=== PATIENT | male | born 1940 | race Caucasian/White ===

== ENCOUNTER 2018-05-05 12:22 | Emergency (ER) | payer MEDICARE, BC ==
--- NOTE | 2018-05-05 13:13 | EDM.PDOC ---
ED HPI GENERAL MEDICAL PROBLEM - General Chief Complaint: General Stated Complaint: ICHY ALL OVER AND DIARRHEA FOR 30 DAYS Time Seen by Provider: 05/05/18 12:50 Source of Information: Reports: Patient History Limitations: Reports: No Limitations - History of Present Illness INITIAL COMMENTS - FREE TEXT/NARRATIVE: 77-year-old male with chief complaints of diffuse itching and watery diarrhea for the past "30 days". He went into the clinic 4 days ago to discuss these problems and was recommended some [id number] medications. He had a bad night last night, was unable to sleep because of the itching so his told him to come to the emergency room today. He has no pain other than some intermittent mild right chest pain which has been ongoing for several weeks. Denies any shortness of breath, fevers or chills. He had an annual exam at the [place] last fall and was told he has high triglycerides otherwise things looked good. He has not been traveling. Associated Symptoms: Reports: Cough (Review of his clinic records shows that he was complaining of a cough 4 days ago), Other (Diarrhea). Denies: Fever/Chills , Headaches, Shortness of Breath - Related Data Allergies Allergy/AdvReac Type Severity Reaction Status Date / Time venom-honey bee Allergy Severe Respiratory Verified 02/11/14 08:42 [bee venom (honey bee)] Depression Home Meds: Home Meds Losartan [Cozaar] 50 mg PO DAILY 10/29/13 [History] Simvastatin [Zocor] 5 mg PO BEDTIME 10/29/13 [History] Past Medical History Cardiovascular History: Reports: High Cholesterol, Hypertension Musculoskeletal History: Reports: Back Pain, Chronic Oncologic (Cancer) History: Reports: Bladder - Past Surgical History GI Surgical History: Reports: Cholecystectomy Other Musculoskeletal Surgeries/Procedures:: SPinal cord Stimulator implant L5- 4 Fusion Social & Family History - Tobacco Use Smoking Status *Q: Never Smoker - Caffeine Use Caffeine Use: Reports: Coffee - Recreational Drug Use Recreational Drug Use: No ED ROS GENERAL - Review of Systems Review Of Systems: See Below Constitutional: Denies: Fever, Chills HEENT: Reports: Other (Very hard of hearing) Respiratory: Reports: Cough (Recent cough seems to have improved). Denies: Shortness of Breath Cardiovascular: Reports: Other (Right anterior intermittent chest discomfort) GI/Abdominal: Reports: Diarrhea. Denies: Abdominal Pain, Nausea Skin: Reports: Pruritis (Diffuse), Rash (Very slight erythema, possibly from scratching) Neurological: Reports: Other (Hard of hearing). Denies: Confusion, Headache ED EXAM, GENERAL - Physical Exam Exam: See Below Exam Limited By: No Limitations General Appearance: Alert, No Apparent Distress Eye Exam: Bilateral Eye: EOMI Head: Atraumatic, Other (Scalp appears normal despite it "itching".) Respiratory/Chest: No Respiratory Distress, Lungs Clear Cardiovascular: Regular Rate, Rhythm GI/Abdominal: Non-Tender Extremities: No: Pedal Edema Neurological: Alert, Oriented Psychiatric: Normal Affect, Normal Mood Skin Exam: Other (There is a very faint hint of a macular erythematous rash on the abdomen and scattered spots on the back, the scalp is clear and extremities look clear) Course - Vital Signs Last Recorded V/S: Last Vital Signs Temp 95.5 F 05/05/18 12:38 Pulse 82 05/05/18 12:38 Resp 16 05/05/18 12:38 BP 152/86 H 05/05/18 12:38 Pulse Ox 96 05/05/18 12:38 - Orders/Labs/Meds Labs: Laboratory Tests 05/05/18 05/05/18 Range/Units 13:16 13:16 WBC 9.4 (4.5-11.0) K/uL RBC 4.67 (4.30-5.90) M/uL Hgb 15.4 H (12.0-15.0) g/dL Hct 45.0 (40.0-54.0) % MCV 96 (80-98) fL MCH 33 H (27-31) pg MCHC 34 (32-36) % Plt Count 333 (150-400) K/uL Neut % (Auto) 64 (36-66) % Lymph % (Auto) 24 (24-44) % [place] % (Auto) 8 H (2-6) % Eos % (Auto) 3 (2-4) % Baso % (Auto) 1 (0-1) % Sodium 139 L (140-148) mmol/L Potassium 4.0 (3.6-5.2) mmol/L Chloride 105 (100-108) mmol/L Carbon Dioxide 23 (21-32) mmol/L Anion Gap 15.0 H (5.0-14.0) mmol/L BUN 14 (7-18) mg/dL Creatinine 1.0 (0.8-1.3) mg/dL Est Cr Clr Drug Dosing 55.83 mL/min Estimated GFR (MDRD) > 60 (>60) Glucose 106 (74-106) mg/dL Calcium 8.9 (8.5-10.1) mg/dL Total Bilirubin 0.6 (0.2-1.0) mg/dL AST 22 (15-37) U/L ALT 44 (12-78) U/L Alkaline Phosphatase 85 (46-116) U/L Total Protein 6.9 (6.4-8.2) g/dL Albumin 3.6 (3.4-5.0) g/dL Globulin 3.3 (2.3-3.5) g/dL Albumin/Globulin Ratio 1.1 L (1.2-2.2) TSH, Ultra Sensitive 1.716 (0.358-3.740) uIU/mL Meds: Medications Discontinued Medications Generic Name Dose Route Start Last Admin Trade Name Mirza PRN Reason Stop Dose Admin Methylprednisolone Sodium Succinate 125 mg 05/05/18 14:03 05/05/18 14:11 Solu-Medrol IM 05/05/18 14:04 125 mg ONETIME ONE Administration - Re-Assessments/Exams Free Text/Narrative Re-Assessment/Exam: 05/05/18 13:12 Reviewed his clinic visit from 4 days ago, the itching wasn't mentioned. His chief complaint at that time was cough and diarrhea for 4 days. Today we'll check a CBC, CMP and TSH and catch a stool sample if he has any diarrhea while here in the emergency room. 05/05/18 14:03 Patient was unable to give us a stool sample during his time in the emergency room. He did not want to wait any longer. His labs returned excellent, CBC CMP and TSH were normal. He'll be given 125 mg of IM Solu-Medrol, and I'm going to recommend Benadryl 25-50 mg 2-3 times daily, especially at bedtime along with some topical hydrocortisone. He needs to recheck at the clinic to provide a diarrhea sample if the diarrhea is persisting. He also may need a skin biopsy if the itching continues. Departure - Departure Time of Disposition: 14:22 Disposition: Home, Self-Care 01 Condition: Good Clinical Impression: Generalized pruritus Diarrhea Qualifiers: Diarrhea type: unspecified type Qualified Code(s): R19.7 - Diarrhea, unspecified - Discharge Information Instructions: Pruritus Referrals: Rupesh Christian MD [Primary Care Provider] - Forms: ED Department Discharge Care Plan Goals: Try Benadryl 25-50 mg every 6 hours, especially before sleeping. Topical hydrocortisone 1% which can be bought [id number] is a good cream to use along with the Benadryl. If diarrhea persists, take a stool sample to the clinic for tests or just recheck with Dr. Christian.
[2018-05-05] MEDS ORDERED: methylPREDNISolone Sodium Succinate 125 MG/2 ML SDV IM ONE (14:03)
== END 2018-05-05 14:22 | disposition home or self-care (01) ==
LOC: JP.ED 12:22
DX: L29.9 Pruritus, unspecified (principal); R19.7 Diarrhea, unspecified; I10 Essential (primary) hypertension; E78.00 Pure hypercholesterolemia, unspecified; Z91.030 Bee allergy status; Z79.899 Other long term (current) drug therapy
CPT/HCPCS: 36415; 80053; 84443; 85025; 96372; 99284; J2930

== ENCOUNTER 2018-09-21 17:02 | Emergency (ER) | payer MEDICARE, BC ==
[2018-09-21] MEDS ORDERED: Sodium Chloride 0.9% 10 ML Syringe FLUSH PRN (17:06)
[2018-09-21] MEDS ORDERED: Sodium Chloride 0.9% 1,000 ML IV SCH ×2 (17:15→18:30)
--- NOTE | 2018-09-21 17:40 | CRLCT ---
INDICATION: Confusion. COMPARISON: None. TECHNIQUE: Axial CT of the head without contrast. FINDINGS: Mild generalized volume loss. Patchy low-attenuation change within the white matter consistent with chronic small vessel ischemic changes. No acute intracranial hemorrhage, acute infarct, mass effect, or fracture. No midline shift. No abnormal ventricular dilatation. Normal calvarium and skull base. Visualized paranasal sinuses and mastoid air cells are clear. Focal soft tissue swelling and hematoma about the left frontal calvarium. No underlying fracture. IMPRESSION: 1. Focal soft tissue swelling and hematoma about the left frontal calvarium. No underlying fracture. 2. No acute intracranial abnormality. 3. Mild generalized volume loss. Dictated by Rakesh Young MD @ 09/21/2018 5:38:14 PM Please note that all CT scans at this facility use dose modulation, iterative reconstruction, and/or weight-based dosing when appropriate to reduce radiation dose to as low as reasonably achievable. Dictated by: Rakesh Young MD @ 09/21/2018 17:38:22 (Electronically Signed)
--- NOTE | 2018-09-21 17:51 | EDM.PDOC ---
ED HPI GENERAL MEDICAL PROBLEM - General Chief Complaint: Trauma Stated Complaint: FALL HURT HEAD Time Seen by Provider: 09/21/18 17:20 Source of Information: Reports: EMS History Limitations: Reports: Altered Mental Status, Intoxication, Uncooperative - History of Present Illness INITIAL COMMENTS - FREE TEXT/NARRATIVE: 78 year-old male presents via EMS after falling at a local grocery store. Patient fell outside got up immediately and was encouraged by passersby to go into the store and EMS was contacted. At time of assessment patient was confused answers yes or no questions appropriately but unable to give details. Patient has an obvious abrasion of his right forehead with a subconjunctival hematoma and periorbital swelling. Patient was alone at the grocery store therefore no witnesses are available at time of assessment. Patient does not know what happened before he fell and does not offer any useful complaints or information at time of evaluation. EMS noted the systolic blood pressure at 80 and blood sugar in the 90s. After initial assessment was contacted who presents to the ER with her son for evaluation. states he has had increased confusion and increased itching over the last 6-12 months. He's been doctoring at the [facility] but no significant abnormalities or concerns have been noted. Patient watches television and due to side effects with the commercials he has not been taking his calls last oral her blood pressure medications as prescribed. Patient is a very poor historian and noncompliant with treatment. is concerned regarding his alcohol use he does have a bottle in the car he tends to drive around and drink during the day. Patient was last known well at approximately noon today when he left his home. Patient has significant risk factors including elevated cholesterol, obesity, alcohol use along with elevated blood pressure therefore cardiac versus stroke causing syncope or in the differential. 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 - Related Data Allergies Allergy/AdvReac Type Severity Reaction Status Date / Time venom-honey bee Allergy Severe Respiratory Verified 02/11/14 08:42 [bee venom (honey bee)] Depression Home Meds: Home Meds Losartan [Cozaar] 50 mg PO DAILY 10/29/13 [History] Simvastatin [Zocor] 5 mg PO BEDTIME 10/29/13 [History] Past Medical History HEENT History: Reports: Impaired Vision Cardiovascular History: Reports: High Cholesterol, Hypertension Musculoskeletal History: Reports: Back Pain, Chronic Oncologic (Cancer) History: Reports: Bladder - Infectious Disease History Infectious Disease History: Reports: Chicken Pox, Measles, Mumps - Past Surgical History GI Surgical History: Reports: Cholecystectomy Other Musculoskeletal Surgeries/Procedures:: SPinal cord Stimulator implant L5- 4 Fusion Social & Family History - Tobacco Use Smoking Status *Q: Unknown Ever Smoked - Caffeine Use Caffeine Use: Reports: Coffee Review of Systems - Review of Systems Review Of Systems: Unable To Obtain (Decreased level of consciousness, confusion , cantankerous in declines answering questions.) ED EXAM, GENERAL - Physical Exam Exam: See Below Exam Limited By: Uncooperative (decreased LOC) General Appearance: Anxious, Mild Distress, Other (decreased LOC delayed responses noted ) Eye Exam: Left Eye: Bleeding (periorbital contusion/abrasion ), Bilateral Eye: EOMI, PERRL (sluggish ) Ears: Normal External Exam, Normal Canal, Hearing Grossly Normal, Normal TMs Ear Exam: Bilateral Ear: Auricle Normal, Canal Normal (cerumen noted), TM normal (difficulty to visualize ) Nose: Normal Inspection, Normal Mucosa, No Blood Throat/Mouth: Normal Inspection, Normal Lips, Normal Gums, Normal Oropharynx, Normal Voice, No Airway Compromise. No: Normal Teeth (poor oral health) Head: Other (left frontal contusion/abrasion noted ) Neck: Normal Inspection, Supple, Non-Tender, Full Range of Motion Respiratory/Chest: No Respiratory Distress, Lungs Clear, Normal Breath Sounds, No Accessory Muscle Use, Chest Non-Tender (Male) Exam: Deferred Rectal (Males) Exam: Deferred Neurological: CN II-XII Intact, Slow to Respond, Memory Loss Recent Events, Abnormal Gait Skin Exam: Warm Lymphatic: No Adenopathy ED TRAUMA PROCEDURES - Laceration/Wound Repair Left Lateral Other Lac/Wound Length In cm: 2.6 (left lateral eyebrow ) Appearance: Subcutaneous Skin Prep: Other (tap water) Closed With: Dermabond Left cheek facial Lac/Wound Length In cm: 3.5 (and 4.0) Appearance: Superficial, Clean Skin Prep: Other (Tap Water) Closed With: Dermabond EKG INTERPRETATION EKG Date: 09/21/18 Time: 17:06 Rhythm: NSR Rate (Beats/Min): 83 P-Wave: Variable QRS: RBBB ST-T: Depressed (depressed t waves) QT: Prolonged Comparison: Change From Previous EKG ([facility] EKG Dated October 2017, flattening T waves in pre cordial leads with flipped t wave in V1&V3 with worsening RBBB) Course - Vital Signs Last Recorded V/S: Last Vital Signs Temp 36.2 C 09/21/18 17:06 Pulse 79 09/21/18 17:06 Resp 13 09/21/18 17:06 BP 104/63 09/21/18 17:06 Pulse Ox 95 09/21/18 17:06 - Orders/Labs/Meds Orders: Active Orders 24 hr Category Date Time Status Cardiac Monitoring [RC] .As Directed Care 09/21/18 17:12 Active EKG Documentation Completion [RC] ASDIRECTED Care 09/21/18 17:06 Active Peripheral IV Care [RC] . DIRECTED Care 09/21/18 17:06 Active CULTURE BLOOD [BC] Urgent Lab 09/21/18 17:13 Received CULTURE BLOOD [BC] Urgent Lab 09/21/18 17:13 Received Sodium Chloride 0.9% [Normal Saline] 1,000 ml Med 09/21/18 17:15 Active IV ASDIRECTED Sodium Chloride 0.9% [Normal Saline] 1,000 ml Med 09/21/18 18:30 Active IV ASDIRECTED Sodium Chloride 0.9% [Saline Flush] Med 09/21/18 17:06 Active 10 ml FLUSH ASDIRECTED PRN Blood Culture x2 Reflex Set [OM.PC] Urgent Oth 09/21/18 17:06 Ordered Peripheral IV Insertion Adult [OM.PC] Urgent Oth 09/21/18 17:06 Ordered EKG 12 Lead [EK] Routine Ther 09/21/18 17:06 Ordered Medication Orders Sodium Chloride (Normal Saline) 1,000 mls @ 500 mls/hr IV ASDIRECTED SONI Last Admin: 09/21/18 17:30 Dose: 500 mls/hr Sodium Chloride (Normal Saline) 1,000 mls @ 500 mls/hr IV ASDIRECTED SONI Last Admin: 09/21/18 19:35 Dose: 500 mls/hr Sodium Chloride (Saline Flush) 10 ml FLUSH ASDIRECTED PRN PRN Reason: Keep Vein Open Labs: Laboratory Tests 09/21/18 09/21/18 09/21/18 Range/Units 17:13 17:13 17:13 WBC 9.9 (4.5-11.0) K/uL RBC 3.99 L (4.30-5.90) M/uL Hgb 13.1 D (12.0-15.0) g/dL Hct 39.5 L (40.0-54.0) % MCV 99 H (80-98) fL MCH 33 H (27-31) pg MCHC 33 (32-36) % Plt Count 272 (150-400) K/uL Neut % (Auto) 67 H (36-66) % Lymph % (Auto) 24 (24-44) % [place] % (Auto) 7 H (2-6) % Eos % (Auto) 1 L (2-4) % Baso % (Auto) 1 (0-1) % PT (9.5-12.0) sec INR (0.80-1.20) Sodium 139 L (140-148) mmol/L Potassium 3.5 L (3.6-5.2) mmol/L Chloride 107 (100-108) mmol/L Carbon Dioxide 18 L (21-32) mmol/L Anion Gap 17.5 H (5.0-14.0) mmol/L BUN 13 (7-18) mg/dL Creatinine 0.9 (0.8-1.3) mg/dL Est Cr Clr Drug Dosing 61.04 mL/min Estimated GFR (MDRD) > 60 (>60) Glucose 106 (74-106) mg/dL Lactic Acid 2.8 H (0.4-2.0) mmol/L Calcium 8.4 L (8.5-10.1) mg/dL Magnesium (1.8-2.4) mg/dL Total Bilirubin 0.4 (0.2-1.0) mg/dL AST 19 (15-37) U/L ALT 25 (12-78) U/L Alkaline Phosphatase 61 (46-116) U/L CK-MB (CK-2) (0-3.6) mg/mL Troponin I < 0.017 (0.000-0.056) ng/mL NT-Pro-B Natriuret Pep 52 (5-450) pg/mL Total Protein 5.8 L (6.4-8.2) g/dL Albumin 3.2 L (3.4-5.0) g/dL Globulin 2.6 (2.3-3.5) g/dL Albumin/Globulin Ratio 1.2 (1.2-2.2) Urine Color Urine Appearance Urine pH (4.5-8.0) Ur Specific [place] (1.008-1.030) Urine Protein (NEGATIVE) mg/dL Urine Glucose (UA) (NEGATIVE) mg/dL Urine Ketones (NEGATIVE) mg/dL Urine Occult Blood (NEGATIVE) Urine Nitrite (NEGAITVE) Urine Bilirubin (NEGATIVE) Urine Urobilinogen (NORMAL) mg/dL Ur Leukocyte Esterase (NEGATIVE) Urine RBC (0-5) Urine WBC (0-5) Ur Epithelial Cells Amorphous Sediment Urine Bacteria Urine Mucus Ethyl Alcohol mg/dL 09/21/18 09/21/18 09/21/18 Range/Units 17:13 17:13 17:30 WBC (4.5-11.0) K/uL RBC (4.30-5.90) M/uL Hgb (12.0-15.0) g/dL Hct (40.0-54.0) % MCV (80-98) fL MCH (27-31) pg MCHC (32-36) % Plt Count (150-400) K/uL Neut % (Auto) (36-66) % Lymph % (Auto) (24-44) % [place] % (Auto) (2-6) % Eos % (Auto) (2-4) % Baso % (Auto) (0-1) % PT 10.4 (9.5-12.0) sec INR 0.94 (0.80-1.20) Sodium (140-148) mmol/L Potassium (3.6-5.2) mmol/L Chloride (100-108) mmol/L Carbon Dioxide (21-32) mmol/L Anion Gap (5.0-14.0) mmol/L BUN (7-18) mg/dL Creatinine (0.8-1.3) mg/dL Est Cr Clr Drug Dosing mL/min Estimated GFR (MDRD) (>60) Glucose (74-106) mg/dL Lactic Acid (0.4-2.0) mmol/L Calcium (8.5-10.1) mg/dL Magnesium 2.0 (1.8-2.4) mg/dL Total Bilirubin (0.2-1.0) mg/dL AST (15-37) U/L ALT (12-78) U/L Alkaline Phosphatase (46-116) U/L CK-MB (CK-2) (0-3.6) mg/mL Troponin I (0.000-0.056) ng/mL NT-Pro-B Natriuret Pep (5-450) pg/mL Total Protein (6.4-8.2) g/dL Albumin (3.4-5.0) g/dL Globulin (2.3-3.5) g/dL Albumin/Globulin Ratio (1.2-2.2) Urine Color Urine Appearance Urine pH (4.5-8.0) Ur Specific [place] (1.008-1.030) Urine Protein (NEGATIVE) mg/dL Urine Glucose (UA) (NEGATIVE) mg/dL Urine Ketones (NEGATIVE) mg/dL Urine Occult Blood (NEGATIVE) Urine Nitrite (NEGAITVE) Urine Bilirubin (NEGATIVE) Urine Urobilinogen (NORMAL) mg/dL Ur Leukocyte Esterase (NEGATIVE) Urine RBC (0-5) Urine WBC (0-5) Ur Epithelial Cells Amorphous Sediment Urine Bacteria Urine Mucus Ethyl Alcohol 235 mg/dL 09/21/18 09/21/18 09/21/18 Range/Units 17:32 18:34 19:55 WBC (4.5-11.0) K/uL RBC (4.30-5.90) M/uL Hgb (12.0-15.0) g/dL Hct (40.0-54.0) % MCV (80-98) fL MCH (27-31) pg MCHC (32-36) % Plt Count (150-400) K/uL Neut % (Auto) (36-66) % Lymph % (Auto) (24-44) % [place] % (Auto) (2-6) % Eos % (Auto) (2-4) % Baso % (Auto) (0-1) % PT (9.5-12.0) sec INR (0.80-1.20) Sodium (140-148) mmol/L Potassium (3.6-5.2) mmol/L Chloride (100-108) mmol/L Carbon Dioxide (21-32) mmol/L Anion Gap (5.0-14.0) mmol/L BUN (7-18) mg/dL Creatinine (0.8-1.3) mg/dL Est Cr Clr Drug Dosing mL/min Estimated GFR (MDRD) (>60) Glucose (74-106) mg/dL Lactic Acid (0.4-2.0) mmol/L Calcium (8.5-10.1) mg/dL Magnesium (1.8-2.4) mg/dL Total Bilirubin (0.2-1.0) mg/dL AST (15-37) U/L ALT (12-78) U/L Alkaline Phosphatase (46-116) U/L CK-MB (CK-2) 0.8 (0-3.6) mg/mL Troponin I < 0.017 (0.000-0.056) ng/mL NT-Pro-B Natriuret Pep (5-450) pg/mL Total Protein (6.4-8.2) g/dL Albumin (3.4-5.0) g/dL Globulin (2.3-3.5) g/dL Albumin/Globulin Ratio (1.2-2.2) Urine Color Yellow Urine Appearance Slightly cloudy Urine pH 6.5 (4.5-8.0) Ur Specific [place] 1.010 (1.008-1.030) Urine Protein Negative (NEGATIVE) mg/dL Urine Glucose (UA) Normal (NEGATIVE) mg/dL Urine Ketones Negative (NEGATIVE) mg/dL Urine Occult Blood Trace (NEGATIVE) Urine Nitrite Negative (NEGAITVE) Urine Bilirubin Negative (NEGATIVE) Urine Urobilinogen Normal (NORMAL) mg/dL Ur Leukocyte Esterase Trace (NEGATIVE) Urine RBC 0-5 (0-5) Urine WBC 0-5 (0-5) Ur Epithelial Cells Rare Amorphous Sediment Not seen Urine Bacteria Few Urine Mucus Few Ethyl Alcohol mg/dL 09/21/18 Range/Units 19:55 WBC (4.5-11.0) K/uL RBC (4.30-5.90) M/uL Hgb (12.0-15.0) g/dL Hct (40.0-54.0) % MCV (80-98) fL MCH (27-31) pg MCHC (32-36) % Plt Count (150-400) K/uL Neut % (Auto) (36-66) % Lymph % (Auto) (24-44) % [place] % (Auto) (2-6) % Eos % (Auto) (2-4) % Baso % (Auto) (0-1) % PT (9.5-12.0) sec INR (0.80-1.20) Sodium (140-148) mmol/L Potassium (3.6-5.2) mmol/L Chloride (100-108) mmol/L Carbon Dioxide (21-32) mmol/L Anion Gap (5.0-14.0) mmol/L BUN (7-18) mg/dL Creatinine (0.8-1.3) mg/dL Est Cr Clr Drug Dosing mL/min Estimated GFR (MDRD) (>60) Glucose (74-106) mg/dL Lactic Acid 2.5 H (0.4-2.0) mmol/L Calcium (8.5-10.1) mg/dL Magnesium (1.8-2.4) mg/dL Total Bilirubin (0.2-1.0) mg/dL AST (15-37) U/L ALT (12-78) U/L Alkaline Phosphatase (46-116) U/L CK-MB (CK-2) (0-3.6) mg/mL Troponin I (0.000-0.056) ng/mL NT-Pro-B Natriuret Pep (5-450) pg/mL Total Protein (6.4-8.2) g/dL Albumin (3.4-5.0) g/dL Globulin (2.3-3.5) g/dL Albumin/Globulin Ratio (1.2-2.2) Urine Color Urine Appearance Urine pH (4.5-8.0) Ur Specific [place] (1.008-1.030) Urine Protein (NEGATIVE) mg/dL Urine Glucose (UA) (NEGATIVE) mg/dL Urine Ketones (NEGATIVE) mg/dL Urine Occult Blood (NEGATIVE) Urine Nitrite (NEGAITVE) Urine Bilirubin (NEGATIVE) Urine Urobilinogen (NORMAL) mg/dL Ur Leukocyte Esterase (NEGATIVE) Urine RBC (0-5) Urine WBC (0-5) Ur Epithelial Cells Amorphous Sediment Urine Bacteria Urine Mucus Ethyl Alcohol mg/dL Meds: Medications Generic Name Dose Route Start Last Admin Trade Name Freq PRN Reason Stop Dose Admin Sodium Chloride 1,000 mls @ 500 mls/hr 06/07/19 17:15 09/21/18 17:30 Normal Saline IV 500 mls/hr ASDIRECTED SONI Administration Sodium Chloride 1,000 mls @ 500 mls/hr 09/21/18 18:30 09/21/18 19:35 Normal Saline IV 500 mls/hr ASDIRECTED SONI Administration Sodium Chloride 10 ml 09/21/18 17:06 Saline Flush FLUSH ASDIRECTED PRN Keep Vein Open - Radiology Interpretation Free Text/Narrative:: CT Head w/o contrast: 1. Focal soft tissue swelling and hematoma about the left frontal calvarium. No underlying fracture. 2. No acute intracranial abnormality. 3. Mild generalized volume loss. CXR Portable: No significant acute cardiopulmonary findings noted. Radiology report reviewed. - Re-Assessments/Exams Free Text/Narrative Re-Assessment/Exam: 79-year-old male presents via EMS after falling in public coming out of a grocery store. He presented via EMS he had decreased level of consciousness, blood sugar was 90s, initial systolic blood pressure was 80s. Trauma systems completed and concern regarding myocardial infarction versus stroke causing fall. CT head showed no acute stroke or intracranial abnormalities. Heart Score: History of physical exam suspicious level: 1. EKG interpretation: Nonspecific repolarization disruption flattened T waves noted in precordial leads: 1. Age of patient greater than 65: 2. Risk factors greater than 3:2 points Troponin initial: Normal Repeat 2-3hr Troponin: Normal Laboratory studies were unrevealing. Patient has a significant high blood alcohol level is 0.24 which is 3 times the legal limit. Due to my concern regarding myocardial infarction along with elevated lactic acid likely secondary to dehydration repeat lactic acid and troponin is ordered. Left acid did improve with fluids given was given 1 L before redraw. Troponin remains stable. Family was updated regarding findings a does not have an acute stroke, acute intracranial bleed and no cardiac abnormality. Patient does not have a diagnosis the qualifies for admission or inpatient status. 09/21/18 18:45 Family is updated regarding laboratory studies. Patient needs to side when when and if he is ready for alcohol treatment. The patient was not comfortable with him going home. Patient is driving intoxicated and his cannot control his behavior and alcohol. He's been told numerous times that alcohol is his problem. He goes to the [facility] for routine care. Patient does not take medications on a regular basis. Patient initially is not agreeable with treatment. Family is not comfortable taking him home. After sitting the department for 2-3 hours and contacting various locations regarding detox and alcohol treatment. Patient is more amenable to treatment and was accepted at [facility]. Family is arranging transportation. 09/21/18 22:30 Departure - Departure Time of Disposition: 22:38 Disposition: DC/Tfer to Other 70 Clinical Impression: Alcohol abuse, Alcohol intoxication, Head injury due to trauma, Laceration - Discharge Information Instructions: Alcohol Use Disorder Forms: ED Department Discharge Additional Instructions: Discharge and Transfer to Detox Facility in [facility] per family. - Problem List & Annotations (1) Alcohol intoxication SNOMED Code(s): 36492858 Code(s): F10.929 - ALCOHOL USE, UNSPECIFIED WITH INTOXICATION, UNSPECIFIED Status: Acute Current Visit: Yes (2) Alcohol abuse SNOMED Code(s): 74934487 Code(s): F10.10 - ALCOHOL ABUSE, UNCOMPLICATED Status: Acute Current Visit: Yes (3) Syncope and collapse SNOMED Code(s): 543513702 Code(s): R55 - SYNCOPE AND COLLAPSE Status: Acute Current Visit: Yes (4) Head injury due to trauma SNOMED Code(s): 49953493 Code(s): S09.90XA - UNSPECIFIED INJURY OF HEAD, INITIAL ENCOUNTER Status: Acute Current Visit: Yes (5) Laceration SNOMED Code(s): 617722674 Code(s): WSO6451 - Status: Acute Current Visit: Yes - My Orders Last 24 Hours: My Active Orders 09/21/18 17:06 EKG Documentation Completion [RC] ASDIRECTED Peripheral IV Care [RC] . DIRECTED Sodium Chloride 0.9% [Saline Flush] 10 ml FLUSH ASDIRECTED PRN Blood Culture x2 Reflex Set [OM.PC] Urgent Peripheral IV Insertion Adult [OM.PC] Urgent EKG 12 Lead [EK] Routine 09/21/18 17:12 Cardiac Monitoring [RC] .As Directed 09/21/18 17:13 CULTURE BLOOD [BC] Urgent CULTURE BLOOD [BC] Urgent 09/21/18 17:15 Sodium Chloride 0.9% [Normal Saline] 1,000 ml IV ASDIRECTED 09/21/18 18:30 Sodium Chloride 0.9% [Normal Saline] 1,000 ml IV ASDIRECTED - Assessment/Plan Last 24 Hours: My Active Orders 09/21/18 17:06 EKG Documentation Completion [RC] ASDIRECTED Peripheral IV Care [RC] . DIRECTED Sodium Chloride 0.9% [Saline Flush] 10 ml FLUSH ASDIRECTED PRN Blood Culture x2 Reflex Set [OM.PC] Urgent Peripheral IV Insertion Adult [OM.PC] Urgent EKG 12 Lead [EK] Routine 09/21/18 17:12 Cardiac Monitoring [RC] .As Directed 09/21/18 17:13 CULTURE BLOOD [BC] Urgent CULTURE BLOOD [BC] Urgent 09/21/18 17:15 Sodium Chloride 0.9% [Normal Saline] 1,000 ml IV ASDIRECTED 09/21/18 18:30 Sodium Chloride 0.9% [Normal Saline] 1,000 ml IV ASDIRECTED
--- NOTE | 2018-09-21 18:06 | CRLCR ---
Indication: Syncopal episode Technique: Chest 1 view Comparison: None Findings: Cardiovascular and mediastinum: Heart size and vasculature are normal in caliber and appearance. Mediastinum is within normal limits. Lungs and pleural space: Lungs are clear. No sign of infiltrate or mass. No sign of pleural effusion. No pneumothorax. Bones and soft tissues: No acute findings. Neurostimulator device electrodes project over the lower thoracic spine. Impression: : No acute abnormality. Dictated by Elda Herrera MD @ Sep 21 2018 6:03PM Signed by Dr. Elda Herrera @ Sep 21 2018 6:04PM
== END 2018-09-21 22:58 | disposition other institution (70) ==
LOC: JP.ED 17:02
DX: S01.112A Laceration without foreign body of left eyelid and periocular area, initial encounter (principal); S01.412A Laceration without foreign body of left cheek and temporomandibular area, initial encounter; F10.120 Alcohol abuse with intoxication, uncomplicated; Y90.7 Blood alcohol level of 200-239 mg/100 ml; I10 Essential (primary) hypertension; E78.00 Pure hypercholesterolemia, unspecified; Z91.030 Bee allergy status; Z79.899 Other long term (current) drug therapy; W19.XXXA Unspecified fall, initial encounter; Y92.512 Supermarket, store or market as the place of occurrence of the external cause
CPT/HCPCS: 12014; 36415; 70450; 71045; 80053; 81001; 82553; 83605; 83735; 83880; 84484; 85025; 85610; 87040; 93005; 96360; 96361; 99284; G0480; J7030

== ENCOUNTER 2019-08-08 09:48 | Emergency (ER) | payer MEDICARE, BC ==
[2019-08-08] MEDS ORDERED: methylPREDNISolone Sodium Succinate 125 MG/2 ML SDV IM ONE (11:20)
--- NOTE | 2019-08-08 11:26 | EDM.PDOC ---
ED HPI GENERAL MEDICAL PROBLEM - General Chief Complaint: Back Pain or Injury Stated Complaint: LOWER BACK PAIN Time Seen by Provider: 08/08/19 11:05 Source of Information: Reports: Patient History Limitations: Reports: No Limitations - History of Present Illness INITIAL COMMENTS - FREE TEXT/NARRATIVE: 79-year-old male with chronic low back pain, has a nerve stimulator in the right paralumbar area that gives him some benefit usually, but over the past 3 or 4 days he has had increased pain and is worried there is something wrong with the stimulator. He has not fallen or had any trauma, he has no fevers or chills. No incontinence. He has some pain that radiates through the buttock into the right knee, he has had this in the past but it seems worse. He called the clinic where he got his stimulator and the provider is not available till August 19 so he came into the emergency room. He took some [id number] pain medication which did not help. He is wondering if we can take the nerve stimulator out. Onset: Gradual Duration: Day(s): (4 days) Location: Reports: Back (Right paralumbar area) Worsens with: Reports: Other (Standing, weightbearing seems to increase pain in the right leg and back), Movement Associated Symptoms: Reports: No Other Symptoms Right Lower Back Pain Score (Numeric/FACES): 8 - Related Data Allergies Allergy/AdvReac Type Severity Reaction Status Date / Time venom-honey bee Allergy Severe Respiratory Verified 08/08/19 10:38 [bee venom (honey bee)] Depression Home Meds: Home Meds Losartan [Cozaar] 50 mg PO DAILY 10/29/13 [History] Simvastatin [Zocor] 5 mg PO BEDTIME 10/29/13 [History] Past Medical History HEENT History: Reports: Impaired Vision Cardiovascular History: Reports: High Cholesterol, Hypertension Musculoskeletal History: Reports: Back Pain, Chronic Oncologic (Cancer) History: Reports: Bladder - Infectious Disease History Infectious Disease History: Reports: Chicken Pox, Measles, Mumps - Past Surgical History HEENT Surgical History: Reports: Tonsillectomy GI Surgical History: Reports: Cholecystectomy Neurological Surgical History: Reports: Spinal Fusion Other Musculoskeletal Surgeries/Procedures:: SPinal cord Stimulator implant L5- 4 Fusion Social & Family History - Tobacco Use Smoking Status *Q: Never Smoker - Caffeine Use Caffeine Use: Reports: Coffee - Recreational Drug Use Recreational Drug Use: No ED ROS GENERAL - Review of Systems Review Of Systems: See Below Constitutional: Denies: Fever, Chills HEENT: Reports: Other (Hearing loss) Respiratory: Denies: Shortness of Breath, Cough Cardiovascular: Denies: Chest Pain, Palpitations GI/Abdominal: Denies: Nausea, Vomiting Musculoskeletal: Reports: Back Pain Skin: Denies: Erythema Neurological: Reports: Paresthesia (Some vague numbness or stinging sensation going down the right buttock to the right knee) Psychiatric: Reports: No Symptoms ED EXAM,LOWER BACK PAIN/INJURY - Physical Exam Exam: See Below Exam Limited By: No Limitations General Appearance: Alert, No Apparent Distress Head: Atraumatic Neck: Normal Inspection Respiratory/Chest: No Respiratory Distress Cardiovascular: Regular Rate, Rhythm Back Exam: Paraspinal Tenderness (There is some paraspinal tenderness to palpation lateral to the vertebral bodies and medial to the nerve stimulator on the right side of the LS spine. The stimulator itself is not inflamed, red, swollen or tender.) Extremities: Other (Internal and external rotation of the right hip is nontender. Extension of the right knee does cause some pulling sensation in his back but no increase in radiculopathy) Skin Exam: Warm, Dry Course - Vital Signs Last Recorded V/S: Last Vital Signs Temp 97.7 F 08/08/19 10:37 Pulse 75 08/08/19 10:37 Resp 14 08/08/19 10:37 BP 136/83 08/08/19 10:37 Pulse Ox 96 08/08/19 10:37 - Orders/Labs/Meds Meds: Medications Discontinued Medications Generic Name Dose Route Start Last Admin Trade Name Mirza PRN Reason Stop Dose Admin Methylprednisolone Sodium Succinate 125 mg 08/08/19 11:20 08/08/19 11:43 Solu-Medrol IM 08/08/19 11:21 125 mg ONETIME ONE Administration - Re-Assessments/Exams Free Text/Narrative Re-Assessment/Exam: 08/08/19 11:24 I suspect the nerve stimulator is working but he has something locally inflamed that is causing increased pain. He was given 125 mg of IM Solu-Medrol and I will provide him with 10 doses of Vicodin to use over the weekend for extra pain control. He is to continue activity as tolerated and call his provider on Monday if not improving satisfactorily. Departure - Departure Time of Disposition: 11:53 Disposition: Home, Self-Care 01 Clinical Impression: Acute exacerbation of chronic low back pain - Discharge Information Instructions: Acute Back Pain, Adult Referrals: PCP,None [Primary Care Provider] - Forms: ED Department Discharge Care Plan Goals: Continue with your current medications, continue charging and using stimulator as usual, and add stronger pain medication as directed if needed. A regular dose of anti-inflammatory such as ibuprofen or Aleve will also help. Call your regular doctor or chronic pain doctor next week if not improving satisfactorily. Sepsis Event Note - Evaluation Sepsis Screening Result: No Definite Risk - Focused Exam Vital Signs: Vital Signs Temp Pulse Resp BP Pulse Ox 08/08/19 10:37 97.7 F 75 14 136/83 96 Date Exam was Performed: 08/08/19 Time Exam was Performed: 12:33
== END 2019-08-08 11:53 | disposition home or self-care (01) ==
LOC: JP.ED 09:48
DX: G89.29 Other chronic pain (principal); M54.5 Low back pain; Z91.030 Bee allergy status; E78.00 Pure hypercholesterolemia, unspecified; I10 Essential (primary) hypertension; Z79.899 Other long term (current) drug therapy
CPT/HCPCS: 96372; 99283; J2930

== ENCOUNTER 2020-02-05 08:36 | Emergency (ER) | payer MEDICARE, BC ==
[2020-02-05] MEDS ORDERED: Lidocaine 2% Jelly 10 ML Urojet MUCMEM ONE (09:21)
[2020-02-05] MEDS ORDERED: Hydrocortisone Acetate 25 MG Supp RECTAL ONE (09:22)
--- NOTE | 2020-02-05 09:35 | EDM.PDOC ---
ED HPI GENERAL MEDICAL PROBLEM - General Chief Complaint: Gastrointestinal Problem Stated Complaint: RECTAL PAIN Time Seen by Provider: 02/05/20 09:10 Source of Information: Reports: Patient History Limitations: Reports: No Limitations - History of Present Illness INITIAL COMMENTS - FREE TEXT/NARRATIVE: Female with rectal pain for the past week. Is especially sore during bowel movements. No fevers or chills, no blood in stool. Denies abdominal pain. This has not happened to him in the past. Onset: Gradual Duration: Day(s): (Symptoms for 7 days) Location: Reports: Other (Rectum only) Associated Symptoms: Reports: Other (Chronic back) Rectal Pain Score (Numeric/FACES): 8 - Related Data Allergies Allergy/AdvReac Type Severity Reaction Status Date / Time venom-honey bee Allergy Severe Respiratory Verified 02/05/20 08:56 [bee venom (honey bee)] Depression Home Meds: Home Meds Losartan [Cozaar] 50 mg PO DAILY 10/29/13 [History] Simvastatin [Zocor] 5 mg PO BEDTIME 10/29/13 [History] Hydrocortisone Acetate [Anusol-Hc] 25 mg RC BID #10 supp.rect 02/05/20 [Rx] Past Medical History HEENT History: Reports: Impaired Vision Cardiovascular History: Reports: High Cholesterol, Hypertension Genitourinary History: Reports: Other (See Below) Other Genitourinary History: 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 Musculoskeletal History: Reports: Back Pain, Chronic Psychiatric History: Reports: Depression Oncologic (Cancer) History: Reports: Bladder - Infectious Disease History Infectious Disease History: Reports: Chicken Pox, Measles, Mumps - Past Surgical History HEENT Surgical History: Reports: Tonsillectomy GI Surgical History: Reports: Cholecystectomy Neurological Surgical History: Reports: Spinal Fusion Other Musculoskeletal Surgeries/Procedures:: SPinal cord Stimulator implant L5-4 Fusion Social & Family History - Tobacco Use Tobacco Use Status *Q: Former Tobacco User Years of Tobacco use: 12 Packs/Tins Daily: 1 Used Tobacco, but Quit: Yes Month/Year Tobacco Last Used: 1969 - Caffeine Use Caffeine Use: Reports: Coffee Other Caffeine Use: 2 cups per day - Alcohol Use Days Per Week of Alcohol Use: 2 Number of Drinks Per Day: 2 Total Drinks Per Week: 4 - Recreational Drug Use Recreational Drug Use: No ED ROS GENERAL - Review of Systems Review Of Systems: See Below Constitutional: Denies: Fever, Chills Respiratory: Denies: Shortness of Breath Cardiovascular: Denies: Chest Pain GI/Abdominal: Reports: Diarrhea (A few episodes of loose stools). Denies: Hematochezia, Vomiting : Denies: Dysuria ED EXAM, GENERAL - Physical Exam Exam: See Below Exam Limited By: No Limitations General Appearance: Alert, No Apparent Distress Respiratory/Chest: No Respiratory Distress Rectal (Males) Exam: Other (There appears to be some superficial inflammation in the perirectal area especially on the right side but no ulcerations or thrombosed hemorrhoid. He is exquisitely tender to palpation with a digital exam at the rectal opening, the rectum has no masses or palpable fissures.) Course - Vital Signs Last Recorded V/S: Last Vital Signs Temp 95 F L 02/05/20 08:57 Pulse 95 02/05/20 08:57 Resp 16 02/05/20 08:57 BP 173/94 H 02/05/20 08:57 Pulse Ox 97 02/05/20 08:57 - Orders/Labs/Meds Meds: Medications Discontinued Medications Generic Name Dose Route Start Last Admin Trade Name Mirza PRN Reason Stop Dose Admin Hydrocortisone Acetate 25 mg 02/05/20 09:22 02/05/20 09:30 Anucort-Hc RECTAL 02/05/20 09:23 25 mg ONETIME ONE Administration Lidocaine HCl 10 ml 02/05/20 09:21 02/05/20 09:29 Xylocaine 2% Jelly MUCMEM 02/05/20 09:22 10 ml ONETIME ONE Administration - Re-Assessments/Exams Free Text/Narrative Re-Assessment/Exam: 02/05/20 09:33 And Anusol HC Suppository use was in the rectum along with topical viscous lidocaine. 10 additional suppositories were called into his pharmacy to be used twice daily, and he should recheck in 3 or 4 days if not significant improvement. He can return sooner if worsening such as fever or bloody stool, or increased pain. Departure - Departure Time of Disposition: 10:03 Disposition: Home, Self-Care 01 Clinical Impression: Anal or rectal pain - Discharge Information Prescriptions: Hydrocortisone Acetate [Anusol-Hc] 25 mg RC BID #10 supp.rect Instructions: Proctitis Referrals: Rupesh Christian MD [Primary Care Provider] - Forms: ED Department Discharge Care Plan Goals: Use suppositories twice daily for the next 3 to 5 days, increase activity as tolerated. Return if pain is worsening, you develop fever or start passing blood in your stool. Otherwise recheck early next week if not improving satisfactorily. Sepsis Event Note (ED) - Evaluation Sepsis Screening Result: No Definite Risk - Focused Exam Vital Signs: Vital Signs Temp Pulse Resp BP Pulse Ox 02/05/20 08:57 95 F L 95 16 173/94 H 97 02/05/20 08:55 95 F L 95 16 173/94 H 97
== END 2020-02-05 09:55 | disposition home or self-care (01) ==
LOC: JP.ED 08:36
DX: K62.89 Other specified diseases of anus and rectum (principal); I10 Essential (primary) hypertension; E78.00 Pure hypercholesterolemia, unspecified; Z90.49 Acquired absence of other specified parts of digestive tract; Z87.891 Personal history of nicotine dependence; Z91.030 Bee allergy status
CPT/HCPCS: 99283; A9270

== ENCOUNTER 2020-02-06 16:03 | Emergency (ER) | payer MEDICARE, BC ==
--- NOTE | 2020-02-06 17:16 | EDM.PDOC ---
ED HPI GENERAL MEDICAL PROBLEM - General Chief Complaint: Gastrointestinal Problem Stated Complaint: RECTAL ISSUE, PAIN Time Seen by Provider: 02/06/20 16:45 Source of Information: Reports: Patient History Limitations: Reports: No Limitations - History of Present Illness INITIAL COMMENTS - FREE TEXT/NARRATIVE: 79-year-old male with worsening rectal pain. He was seen yesterday, exam was really nonspecific but now he feels like it starting to swell on the right side. He has been using the cream and its not helping. No fevers or chills. Onset: Gradual Duration: Day(s): (7 days) Location: Reports: Other (Rectum, especially the right side) - Related Data Allergies Allergy/AdvReac Type Severity Reaction Status Date / Time venom-honey bee Allergy Severe Respiratory Verified 02/05/20 08:56 [bee venom (honey bee)] Depression Home Meds: Home Meds Losartan [Cozaar] 50 mg PO DAILY 10/29/13 [History] Simvastatin [Zocor] 5 mg PO BEDTIME 10/29/13 [History] Hydrocortisone Acetate [Anusol-Hc] 25 mg RC BID #10 supp.rect 02/05/20 [Rx] Past Medical History HEENT History: Reports: Impaired Vision Cardiovascular History: Reports: High Cholesterol, Hypertension Genitourinary History: Reports: Other (See Below) Other Genitourinary History: 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 Musculoskeletal History: Reports: Back Pain, Chronic Psychiatric History: Reports: Depression Oncologic (Cancer) History: Reports: Bladder - Infectious Disease History Infectious Disease History: Reports: Chicken Pox, Measles, Mumps - Past Surgical History HEENT Surgical History: Reports: Tonsillectomy GI Surgical History: Reports: Cholecystectomy Neurological Surgical History: Reports: Spinal Fusion Other Musculoskeletal Surgeries/Procedures:: SPinal cord Stimulator implant L5-4 Fusion Social & Family History - Caffeine Use Caffeine Use: Reports: Coffee Other Caffeine Use: 2 cups per day - Recreational Drug Use Recreational Drug Use: No ED ROS GENERAL - Review of Systems Review Of Systems: See Below Constitutional: Reports: Malaise. Denies: Fever, Chills HEENT: Reports: No Symptoms Respiratory: Denies: Shortness of Breath Cardiovascular: Denies: Chest Pain GI/Abdominal: Denies: Abdominal Pain, Nausea, Vomiting Neurological: Denies: Headache ED EXAM, GENERAL - Physical Exam Exam: See Below Exam Limited By: No Limitations General Appearance: Alert, Mild Distress (Looks fairly uncomfortable) Head: Atraumatic Respiratory/Chest: No Respiratory Distress GI/Abdominal: Non-Tender Rectal (Males) Exam: Other (Rectal exam has some swelling, slight fluctuance in exquisite tenderness in the right perirectal area, this was not present yesterday.) Neurological: Alert, Oriented, Other (Very hard of hearing) Skin Exam: Warm, Dry Course - Vital Signs Last Recorded V/S: Last Vital Signs Temp 95.9 F L 02/06/20 16:39 Pulse 89 02/06/20 16:39 Resp 16 02/06/20 16:39 BP 171/89 H 02/06/20 16:39 Pulse Ox 96 02/06/20 16:39 - Re-Assessments/Exams Free Text/Narrative Re-Assessment/Exam: 02/06/20 17:14 Patient is developing a perirectal abscess. Discussed with Dr. Bejarano, he will be placed on Augmentin 875 twice daily and given Percocet to use for pain control along with anti-inflammatories, and he will be seen at the clinic tomorrow morning for surgical assessment and likely I&D. Departure - Departure Time of Disposition: 17:30 Disposition: Home, Self-Care 01 Clinical Impression: Violette-rectal abscess - Discharge Information Instructions: Anorectal Abscess Referrals: Rupesh Christian MD [Primary Care Provider] - Forms: ED Department Discharge Care Plan Goals: Continue with anti-inflammatories for pain, topical creams may still be helpful. Take 1 dose of antibiotic tonight and tomorrow morning with food. Use stronger pain medicines for extra pain control as prescribed. Go to the clinic tomorrow morning at around 830 to 8:45, Dr. Bejarano will see you at 9 AM. Sepsis Event Note (ED) - Evaluation Sepsis Screening Result: No Definite Risk - Focused Exam Vital Signs: Vital Signs Temp Pulse Resp BP Pulse Ox 02/06/20 16:39 95.9 F L 89 16 171/89 H 96 02/06/20 16:38 95.9 F L 89 16 171/89 H 96
== END 2020-02-06 17:36 | disposition home or self-care (01) ==
LOC: JP.ED 16:03
DX: K61.1 Rectal abscess (principal); E78.00 Pure hypercholesterolemia, unspecified; I10 Essential (primary) hypertension; Z91.030 Bee allergy status; Z79.899 Other long term (current) drug therapy
CPT/HCPCS: 99283

== ENCOUNTER 2020-02-08 06:31 | Day surgery (SDC) | payer MEDICARE, BC ==
[2020-02-08] MEDS ORDERED: Bupivacaine 0.5%/EPINEPHrine 1:200,000 50 ML MDV ONE (06:38)
[2020-02-08] MEDS ORDERED: Acetaminophen 500 MG Tab PO ONE (06:45)
[2020-02-08] MEDS ORDERED: Neostigmine Methylsulfate 1 MG/ML 5 ML Syringe ONE (07:20)
[2020-02-08] MEDS ORDERED: Propofol 200 MG/20 ML SDV ONE (07:20)
[2020-02-08] MEDS ORDERED: Succinylcholine 200 MG/10 ML MDV ONE (07:20)
[2020-02-08] MEDS ORDERED: fentaNYL 250 MCG/5 ML SDV ONE (07:20)
[2020-02-08] MEDS ORDERED: Ondansetron 4 MG/2 ML SDV ONE (07:20)
[2020-02-08] MEDS ORDERED: Rocuronium 50 MG/5 ML Vial ONE (07:20)
[2020-02-08] MEDS ORDERED: Dexamethasone 4 MG/ML SDV ONE (07:20)
[2020-02-08] MEDS ORDERED: Glycopyrrolate 0.2 MG/ML 5 ML MDV ONE (07:20)
[2020-02-08] MEDS: Dextrose 5%-Lactated Ringers 1,000 ML IV SCH ×2 (07:42→12:11)
[2020-02-08] MEDS ORDERED: Meropenem 500 MG in Sodium Chloride 0.9% 50 ML IV ONE (08:15)
[2020-02-08] MEDS ORDERED: Hydrogen Peroxide 3% Top Soln 240 ML Bottle ONE (08:20)
[2020-02-08] MEDS ORDERED: Sugammadex Sodium 200 MG/2 ML VIAL IV ONE (09:25)
[2020-02-08] MEDS ORDERED: HYDROmorphone 1 MG/ML Syringe IV PRN (11:07)
[2020-02-08] MEDS ORDERED: HYDROmorphone 0.5 MG/0.5 ML Syringe IVPUSH PRN (11:07)
[2020-02-08] MEDS ORDERED: Ondansetron 4 MG/2 ML SDV IVPUSH PRN (11:09)
[2020-02-08] MEDS: Meropenem 500 MG in Sodium Chloride 0.9% 50 ML IV SCH ×2 (13:30→20:12)
[2020-02-08] MEDS: Acetaminophen/HYDROcodone 325-5 MG Tab PO PRN ×2 (13:42→20:12)
[2020-02-08] MEDS ORDERED: Simvastatin 20 MG Tab PO SCH (21:00)
[2020-02-09] MEDS: Meropenem 500 MG in Sodium Chloride 0.9% 50 ML IV SCH ×2 (02:30→08:23)
[2020-02-09] MEDS: Dextrose 5%-Lactated Ringers 1,000 ML IV SCH (02:30)
[2020-02-09] MEDS: Acetaminophen/HYDROcodone 325-5 MG Tab PO PRN (08:23)
[2020-02-09] MEDS ORDERED: Losartan 50 MG Tab PO SCH (09:00)
--- NOTE | 2020-02-09 10:16 | DISCH ---
FINAL DIAGNOSIS: Perirectal abscess associated with [id number] and associated inflamed hemorrhoidal columns. SECONDARY DIAGNOSES: 1. Status post head injury. 2. History of diarrhea. 3. Hyperlipidemia. 4. History of hypertension. 5. History of depression. OPERATIVE PROCEDURE: Done on 02/08/2020: Incision and drainage of perirectal abscess with anal fistulotomy and a single column hemorrhoidectomy. SUMMARY: This is a 79-year-old male presenting with a perirectal abscess. This was partially drained prior to admission and the night before coming in. This was formally drained. 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 Postoperatively, the patient felt much better. He will be packing the area with 4x4s as needed and otherwise continue the present home medications plus Artie 5/325 one to two tablets q.6 hours p.r.n. pain #30 and Augmentin 875 mg p.o. b.i.d. x5 days. Followup will be with Dr. Bejarano at [facility] on 02/12/2020. /[id number]
--- NOTE | 2020-02-18 16:12 | OR ---
DATE OF PROCEDURE: 02/08/2020 SURGEON: Lauri Bejarano MD PREOPERATIVE DIAGNOSIS: Perirectal abscess. POSTOPERATIVE DIAGNOSES: 1. Perirectal abscess associated with intersphincteric [id number]. 2. Associated inflamed hemorrhoidal column. OPERATIVE PROCEDURE: Incision and drainage of rectal abscess with associated fistulotomy and a single-column hemorrhoidectomy ([id number]). ANESTHESIA: General. INDICATIONS FOR PROCEDURE: This is a 79-year-old male presenting with a clinically evident perirectal abscess. Plan is to proceed with admission with drainage of this. The fistula will be managed if this is identified concurrently. Potential risks of the procedure including bleeding, infection, possible problems with fecal incontinence post procedure were reviewed, and the patient wishes to proceed. DETAILS OF PROCEDURE: The patient was taken to the operating room, placed in a supine position. After general endotracheal anesthesia was induced, he was converted to a lithotomy position, and perianal prep performed. Initial digital rectal exam confirmed the posteriorly based abscess. This was at this point partially drained. was placed into the abscess cavity which showed a well-defined low-lying intersphincteric fistula more or less between the internal sphincter and the external sphincter, but not involving the external sphincter per se. This was, at this point, thus divided, which allowed complete drainage of the abscess as well. Some of the fistula tract and abscess cavity were excised and sent for histologic evaluation. There was an adjacent hemorrhoidal column, which was quite inflamed. This was excised as well, and hemostasis at this point obtained with electrocautery along with 4-0 Vicryl stitches at the hemorrhoidectomy site. The area was then anesthetized with 0.5% Marcaine mixed with lidocaine, and the procedure then concluded. The patient was taken to the recovery room in satisfactory condition. There were no evident complications. Lauri Bejarano MD /[id number]
== END 2020-02-09 10:00 | disposition home or self-care (01) ==
LOC: JP.SDS 06:31 → JP.MS 09:15 → JP.SDS 02-09 10:00
PROVIDERS: ATTEND Surgery
DX: K64.8 Other hemorrhoids (principal); K60.3 Anal fistula; I10 Essential (primary) hypertension; E78.00 Pure hypercholesterolemia, unspecified; G89.29 Other chronic pain; E66.01 Morbid (severe) obesity due to excess calories; Z01.812 Encounter for preprocedural laboratory examination; Z20.828 Contact with and (suspected) exposure to other viral communicable diseases; Z91.030 Bee allergy status; Z79.899 Other long term (current) drug therapy; Z90.49 Acquired absence of other specified parts of digestive tract; Z98.890 Other specified postprocedural states; Z68.30 Body mass index [BMI] 30.0-30.9, adult
CPT/HCPCS: 36415; 46258; 80053; 85027; 88304; 94762; A9270; J0330; J1100; J2185; J2405; J2704; J2710; J3010; J3490; J7050; J7121; U0002

== ENCOUNTER 2022-11-17 14:27 | Emergency (ER) | payer MEDICARE, BC ==
[2022-11-17] MEDS ORDERED: Acetaminophen/HYDROcodone 325-5 MG Tab PO ONE ×2 (16:49→17:32)
== END 2022-11-17 18:26 | disposition home or self-care (01) ==
LOC: JP.ED 14:27
DX: M54.42 Lumbago with sciatica, left side (principal); E78.00 Pure hypercholesterolemia, unspecified; I10 Essential (primary) hypertension; Z79.899 Other long term (current) drug therapy; Z91.030 Bee allergy status; Z88.6 Allergy status to analgesic agent
CPT/HCPCS: 99283; A9270

== ENCOUNTER 2023-10-03 17:33 | Inpatient (IN) | payer MEDICARE, BC ==
[2023-10-03 18:44] LABS: BASOPHILS ABSOLUTE AUTO 0.12 K/uL (0.00-0.10); BASOPHILS PERCENT AUTO 0.8 % (0.1-1.3); EOSINOPHILS ABSOLUTE AUTO 0.37 K/uL (0.00-0.40); EOSINOPHILS PERCENT AUTO 2.4 % (0.0-5.4); HEMATOCRIT 34.7 % (38.4-49.7); HEMOGLOBIN 12.6 g/dL (12.9-16.9); IMMATURE GRAN ABSOLUTE AUTO 0.63 K/uL (0.00-0.23); IMMATURE GRAN PERCENT AUTO 4.1 % (0.0-0.7); LYMPHOCYTES ABSOLUTE AUTO 2.94 K/uL (0.8-3.3); MEAN CORPUSCULAR HEMOGLOBIN 34.4 pg (31.6-35.5); MEAN CORPUSCULAR HGB CONC 36.3 g/dL (31.6-35.5); MEAN CORPUSCULAR VOLUME 94.8 fL (81.4-99.0); MONOCYTES ABSOLUTE AUTO 1.35 K/uL (0.20-0.90); MONOCYTES PERCENT AUTO 8.7 % (3.3-12.6); NEUTROPHILS ABSOLUTE AUTO 10.08 K/uL (1.0-7.6); PLATELET COUNT,PLT 436 K/uL (130-375); RED BLOOD CELL COUNT 3.66 M/uL (4.14-5.76); WHITE BLOOD CELL COUNT,WBC 15.5 K/uL (3.2-11.0)
[2023-10-03 19:14] LABS: A/G RATIO 0.6 (1.2-2.2); ALANINE AMINOTRANSFERASE,ALT 72 U/L (12-78); ALBUMIN 2.7 g/dL (3.4-5.0); ALKALINE PHOSPHATASE 90 U/L (46-116); ANION GAP 19.6 mmol/L (5.0-14.0); ASPARTATE AMNIOTRANSFERASE,AST 23 U/L (15-37); BILIRUBIN TOTAL 0.5 mg/dL (0.2-1.0); CALCIUM 8.9 mg/dL (8.5-10.1); CARBON DIOXIDE,CO2 19 mmol/L (21-32); CHLORIDE,CL 96 mmol/L (100-108); CREATININE 3.3 mg/dL (0.8-1.3); EST CRCL DRUG DOSING (CG) 15.31 mL/min; ESTIMATED GFR 18 mL/min (>60); GLUCOSE RANDOM 127 mg/dL (74-106); POTASSIUM,K 3.6 mmol/L (3.6-5.2); SODIUM,NA 131 mmol/L (140-148); TSH ULTRASENSITIVE 1.378 uIU/mL (0.358-3.740)
[2023-10-03 19:16] LABS: BLOOD UREA NITROGEN,BUN 82 mg/dL (7-18)
[2023-10-03] MEDS: Sodium Chloride 0.9% 1,000 ML IV SCH ×2 (19:45→22:21)
[2023-10-03 20:30] LABS: APPEARANCE,URINE CLOUDY (CLEAR); BILIRUBIN,URINE NEGATIVE (NEGATIVE); COLOR,URINE YELLOW (YELLOW); GLUCOSE,URINE NEGATIVE (NEGATIVE); KETONES,URINE NEGATIVE (NEGATIVE); LEUKOCYTE ESTERASE,URINE MODERATE (NEGATIVE); NITRITE,URINE NEGATIVE (NEGATIVE); OCCULT BLOOD,URINE TRACE-LYSED (NEGATIVE); PROTEIN,URINE 30 mg/dL (NEGATIVE); UROBILINOGEN,URINE 0.2 EU/dL (0.2-1.0)
[2023-10-03 20:38] LABS: AMORPHOUS SEDIMENT,URINE NOT SEEN; BACTERIA,URINE MANY; EPITHELIAL CELLS,URINE FEW; MUCUS,URINE MODERATE; WBC,URINE 50-75 (0-5)
[2023-10-03] MEDS: cefTRIAXone 1 GM in Sodium Chloride 0.9% 50 ML IV ONE (20:53)
[2023-10-03] MEDS ORDERED: Ondansetron 4 MG Tab.DIS PO PRN (21:43)
[2023-10-03] MEDS ORDERED: Ondansetron 4 MG/2 ML SDV IV PRN (21:43)
[2023-10-03] MEDS ORDERED: Melatonin 3 MG Tab PO PRN (21:43)
[2023-10-03] MEDS ORDERED: Sennosides/Docusate Sodium 50-8.6 MG Tab PO PRN (21:43)
[2023-10-03] MEDS ORDERED: Magnesium Hydroxide 400 MG/5 ML Susp 30 ML Cup PO PRN (21:43)
[2023-10-03] MEDS ORDERED: Acetaminophen 325 MG Tab PO PRN (21:43)
[2023-10-03] MEDS: Enoxaparin 30 MG/0.3 ML Syringe SUBCUT SCH (22:23)
[2023-10-04 06:31] LABS: HEMATOCRIT 32.3 % (38.4-49.7); HEMOGLOBIN 11.4 g/dL (12.9-16.9); MEAN CORPUSCULAR HEMOGLOBIN 34.2 pg (31.6-35.5); MEAN CORPUSCULAR HGB CONC 35.3 g/dL (31.6-35.5); RED BLOOD CELL COUNT 3.33 M/uL (4.14-5.76); WHITE BLOOD CELL COUNT,WBC 14.6 K/uL (3.2-11.0)
[2023-10-04 06:49] LABS: POTASSIUM,K 3.8 mmol/L (3.6-5.2)
[2023-10-04 06:50] LABS: ANION GAP 15.8 mmol/L (5.0-14.0); CALCIUM 8.4 mg/dL (8.5-10.1); CREATININE 2.5 mg/dL (0.8-1.3); EST CRCL DRUG DOSING (CG) 20.2 mL/min
[2023-10-04] MEDS: Lactobacillus Rhamnosus GG (Probiotic) Cap PO SCH (08:32)
[2023-10-04] MEDS: cefTRIAXone 1 GM in Sodium Chloride 0.9% 50 ML IV SCH (20:03)
[2023-10-05 04:53] LABS: HEMATOCRIT 31.3 % (38.4-49.7); HEMOGLOBIN 11.2 g/dL (12.9-16.9); MEAN CORPUSCULAR HEMOGLOBIN 34.3 pg (31.6-35.5); MEAN CORPUSCULAR HGB CONC 35.8 g/dL (31.6-35.5); MEAN CORPUSCULAR VOLUME 95.7 fL (81.4-99.0); RED BLOOD CELL COUNT 3.27 M/uL (4.14-5.76); WHITE BLOOD CELL COUNT,WBC 11.6 K/uL (3.2-11.0)
[2023-10-05 05:13] LABS: CALCIUM 8.2 mg/dL (8.5-10.1); CREATININE 1.3 mg/dL (0.8-1.3); EST CRCL DRUG DOSING (CG) 38.85 mL/min; MAGNESIUM 2.3 mg/dL (1.8-2.4); POTASSIUM,K 3.8 mmol/L (3.6-5.2)
[2023-10-05 05:15] LABS: ANION GAP 13.8 mmol/L (5.0-14.0)
[2023-10-05] MEDS: Pneumococcal 20-Valent Conjug 0.5 ML Syringe IM ONE (08:27)
[2023-10-05 11:05] VITALS: BP 168/81; PULSE 82
== END 2023-10-05 13:35 | disposition home or self-care (01) | DRG 683 ==
LOC: JP.ED 17:33 → JP.MS 21:14
PROVIDERS: ADMIT Registered Nurse; ATTEND Hospitalist
DX: N17.9 Acute kidney failure, unspecified (principal); F03.93 Unspecified dementia, unspecified severity, with mood disturbance; N30.01 Acute cystitis with hematuria; H54.7 Unspecified visual loss; E78.00 Pure hypercholesterolemia, unspecified; I10 Essential (primary) hypertension; Z88.6 Allergy status to analgesic agent; M54.9 Dorsalgia, unspecified; G89.29 Other chronic pain; D72.829 Elevated white blood cell count, unspecified; Z91.030 Bee allergy status; Z88.8 Allergy status to other drugs, medicaments and biological substances; Z79.899 Other long term (current) drug therapy; Z85.46 Personal history of malignant neoplasm of prostate; Z90.89 Acquired absence of other organs; Z90.49 Acquired absence of other specified parts of digestive tract; Z98.890 Other specified postprocedural states; Z98.1 Arthrodesis status; Z96.82 Presence of neurostimulator; Z85.51 Personal history of malignant neoplasm of bladder
CPT/HCPCS: 36415; 71045; 80053; 81001; 83605; 83880; 84145; 84443; 85025; 86140; 87040 ×2; 87086; 96361; 96365; 99285; J0696; J3490; J7030; 80048; 83735; 85027; 90677; 97161-GP; 97165-GO; 99222; 99232; 99238; A9270-GY; G0009; J1650